=== PATIENT | female | born 1970 | race Caucasian/White ===

== ENCOUNTER 2016-04-23 19:20 | Outpatient (CLI) | payer OTHER | END 2016-04-23 19:21 | disposition short-term general hospital (02) | DX: S91.312A Laceration without foreign body, left foot, initial encounter (principal); W45.8XXA Other foreign body or object entering through skin, initial encounter; Y92.008 Other place in unspecified non-institutional (private) residence as the place of occurrence of the external cause | CPT/HCPCS: A0425; A0429 ==

== ENCOUNTER 2017-03-04 20:46 | Outpatient (CLI) | payer OTHER ==
--- NOTE | 2017-03-05 09:59 | XRAY Report ---
DATE OF SERVICE: 03/04/2017 THREE VIEW SACRUM AND COCCYX: 03/04/2017 CLINICAL INDICATION: Coccygeal pain, status post fall. FINDINGS: AP, oblique and lateral views of the sacrum and coccyx demonstrate no evidence of acute fracture. The sacral ala are preserved. There are mild degenerative changes of the sacroiliac joints. An IUD is incidentally noted in the pelvis. IMPRESSION: NO EVIDENCE OF ACUTE FRACTURE. MILD DEGENERATIVE CHANGES OF THE SACROILIAC JOINTS. TD: 03/05/2017 10:58
== END 2017-03-04 20:47 | disposition home or self-care (01) ==
LOC: DI 20:46
PROVIDERS: ATTEND Nurse Practitioner Family
DX: M47.898 Other spondylosis, sacral and sacrococcygeal region (principal)
CPT/HCPCS: 72220

== ENCOUNTER 2018-12-10 11:29 | Outpatient (CLI) | payer OTHER ==
[2018-12-10 17:40] LABS: BASOPHILS % (AUTO) 0.4 %; EOSINOPHILS # (AUTO) 0.2 10^3/uL (0.0-0.7); EOSINOPHILS % (AUTO) 1.9 %; HGB - HEMOGLOBIN 12.6 g/dL (12.0-16.0); LYMPHOCYTES # (AUTO) 2.5 10^3/uL (1.5-3.5); MEAN CORPUSCULAR VOLUME 93.9 fL (81.0-99.0); MEAN PLATELET VOLUME 10.3 fL (7.9-10.8); MONOCYTES # (AUTO) 0.7 10^3/uL (0.0-1.0); MONOCYTES % (AUTO) 7.8 %; NEUTROPHILS # (AUTO) 5.7 10^3/uL (1.5-6.6); NEUTROPHILS % (AUTO) 62.6 %; PLT - PLATELET COUNT 246 10^3/uL (130-450); RED BLOOD COUNT 4.07 10^6/uL (4.20-5.40); RED CELL DISTRIBUTION WIDTH 12.3 % (12.0-15.0); WHITE BLOOD COUNT 9.1 x10^3/uL (4.8-10.8)
[2018-12-10 17:58] LABS: CALCIUM 9.2 mg/dL (8.5-10.3); CREATININE 0.6 mg/dL (0.4-1.0)
== END 2018-12-10 11:30 | disposition home or self-care (01) ==
LOC: LAB.S 11:29
PROVIDERS: ATTEND Registered Nurse
DX: G43.909 Migraine, unspecified, not intractable, without status migrainosus (principal)
CPT/HCPCS: 36415; 80048; 85025

== ENCOUNTER 2021-01-02 07:18 | Outpatient (CLI) | payer OTHER ==
[2021-01-02 15:44] LABS: BASOPHILS % (AUTO) 0.6 %; EOSINOPHILS # (AUTO) 0.2 10^3/uL (0.0-0.7); EOSINOPHILS % (AUTO) 2.8 %; HGB - HEMOGLOBIN 12.5 g/dL (12.0-16.0); LYMPHOCYTES # (AUTO) 2.1 10^3/uL (1.5-3.5); MEAN CORPUSCULAR HEMOGLOBIN 29.8 pg (27.0-31.0); MEAN CORPUSCULAR HGB CONC 32.1 g/dL (32.0-36.0); MEAN CORPUSCULAR VOLUME 92.9 fL (81.0-99.0); MEAN PLATELET VOLUME 9.5 fL (7.9-10.8); MONOCYTES # (AUTO) 0.5 10^3/uL (0.0-1.0); NEUTROPHILS % (AUTO) 58.3 %; PLT - PLATELET COUNT 263 10^3/uL (130-450); RED CELL DISTRIBUTION WIDTH 12.3 % (12.0-15.0); WHITE BLOOD COUNT 6.8 x10^3/uL (4.8-10.8)
[2021-01-02 16:13] LABS: ALBUMIN 4.3 g/dL (3.2-5.5); ALBUMIN/GLOBULIN RATIO 1.5 (1.0-2.2); ALKALINE PHOSPHATASE 51 IU/L (42-121); ALT ALANINE AMINOTRANSFERASE 32 IU/L (10-60); AST ASPARTATE AMINOTRANSFERASE 24 IU/L (10-42); BILIRUBIN,TOTAL 0.9 mg/dL (0.2-1.0); BUN - BLOOD UREA NITROGEN 23 mg/dL (6-20); CARBON DIOXIDE - CO2 23 mmol/L (21-32); CHLORIDE 108 mmol/L (101-111); CHOL/HDL RATIO 4.8 (<4.4); CHOLESTEROL 200 mg/dL; CREATININE 0.8 mg/dL (0.4-1.0); GFR - MDRD 76 (>89); GLUCOSE 106 mg/dL (70-100); HDL CHOLESTEROL 42 mg/dL; LDL CHOLESTEROL,CALCULATED 122 mg/dL; LDL/HDL RATIO 2.9 (<4.4); POTASSIUM 3.7 mmol/L (3.5-5.0); SODIUM 139 mmol/L (135-145); TOTAL PROTEIN 7.2 g/dL (6.7-8.2); TRIGLYCERIDES 179 mg/dL; VLDL CHOLESTEROL 36 mg/dL
[2021-01-02 16:15] LABS: THYROID STIMULATING HORMONE 2.68 uIU/mL (0.34-5.60)
== END 2021-01-02 07:19 | disposition home or self-care (01) ==
LOC: LAB.S 07:18
PROVIDERS: ATTEND Registered Nurse
DX: I10 Essential (primary) hypertension (principal); E78.5 Hyperlipidemia, unspecified; Z13.29 Encounter for screening for other suspected endocrine disorder; Z13.0 Encounter for screening for diseases of the blood and blood-forming organs and certain disorders involving the immune mechanism
CPT/HCPCS: 36415; 80053; 80061; 83721; 84443; 85025

== ENCOUNTER 2021-01-30 07:30 | Outpatient (CLI) | payer OTHER ==
--- NOTE | 2021-01-31 14:05 | Mammography Report ---
BILATERAL DIGITAL SCREENING MAMMOGRAM 3D/2D WITH EXAGGERATED CC: 01/30/2021 CLINICAL: Routine screening. Comparison is made to exams dated: 08/02/2015 mammogram and 03/03/2013 mammogram - [facility]. There are scattered fibroglandular elements in both breasts. There is an oval equal density mass with an indistinct and circumscribed margin in the right breast c entral to the nipple middle depth. There is an oval equal density focal asymmetry with an obscured, indistinct, and circumscribed margin in the left breast at 1 o'clock anterior depth. No other significant masses or calcifications are seen in either breast. IMPRESSION: INCOMPLETE: NEEDS ADDITIONAL IMAGING EVALUATION The oval equal density mass in the right breast central to the nipple middle depth is indeterminate. Mediolateral and spot compression views as well as additional views with possible ultrasound are rec ommended. The oval equal density focal asymmetry in the left breast at 1 o'clock anterior depth is indeterminat e. Mediolateral and spot compression views as well as additional views with possible ultrasound are recommended. This exam was interpreted at Station ID: [id number]. NOTE: For mammograms, a report in lay terms will be sent to the patient. Approximately 15% of breast malignancies will not be visualized mammographically. In the management of a palpable breast mass, a negative mammogram must not discourage biopsy of a clinically suspicious lesion. Electronically Signed By: Alvin Valdez M.D. ddp/:01/30/2021 09:34:28 ACR BI-RADS Category 0: Incomplete 3340F PARENCHYMAL PATTERN: (A) - The breast(s) demonstrate(s) scattered fibroglandular densities. BI-RADS CATEGORY: (0) - 0 Mammo and US [id number] Immediate follow-up LATERALITY: (B)
== END 2021-01-30 07:31 | disposition home or self-care (01) ==
LOC: DI.S 07:30
PROVIDERS: ATTEND Registered Nurse
DX: Z12.31 Encounter for screening mammogram for malignant neoplasm of breast (principal); R92.8 Other abnormal and inconclusive findings on diagnostic imaging of breast

== ENCOUNTER 2021-02-20 07:46 | Outpatient (CLI) | payer OTHER ==
--- NOTE | 2021-02-21 16:06 | Ultrasound Report ---
LIMITED ULTRASOUND OF LEFT BREAST AND AXILLA: 02/20/2021 CLINICAL: Patient returns today to evaluate a focal asymmetry in the left breast. Comparison is made to exams dated: 02/20/2021 mammogram and 01/30/2021 mammogram - [facility]. Color flow and real-time ultrasound of the left breast 1 o'clock, and axilla regions were performed. Johnson scale images of the real-time examination were reviewed. There is a 1.3 cm x 0.8 cm x 0.4 cm oval cyst with a septated internal wall in the left breast at 1 o 'clock anterior depth 3 cm from the nipple. This oval cyst is hypoechoic. This correlates with mamm ography findings. Color flow imaging demonstrates that there is no vascularity present. No significant abnormalities were seen sonographically in the left axilla. IMPRESSION: PROBABLY BENIGN The 1.3 cm oval cyst in the left breast is consistent with a complicated cyst or cyst cluster and is probably benign. A follow-up ultrasound in 6 months is recommended to demonstrate stability. Exam findings were conveyed to the patient. This exam was interpreted at Station ID: [id number]. Electronically Signed By: Manohar Mccoy M.D. slc/:02/20/2021 09:19:54 Ultrasound BI-RADS: 3 Probably benign BI-RADS CATEGORY: (3) - 3 Ultrasound [id number] 6 month follow-up LATERALITY: (B)
--- NOTE | 2021-02-21 16:06 | Mammography Report ---
BILATERAL DIGITAL DIAGNOSTIC MAMMOGRAM 3D/2D: 02/20/2021 CLINICAL: Patient returns today to evaluate a focal asymmetry in the right breast. Patient returns to day to evaluate a focal asymmetry in the left breast. Comparison is made to exams dated: 01/30/2021 mammogram, 08/02/2015 mammogram, and 03/03/2013 mammogra m - [facility]. There are scattered fibroglandular elements in both breasts. There is a 0.8 cm oval equal density mass with an indistinct and circumscribed margin in the right br east central to the nipple middle depth. There is a 1.3 cm oval equal density focal asymmetry with an obscured, indistinct, and circumscribed margin in the left breast at 1 o'clock anterior depth. No other significant masses or calcifications are seen in either breast. IMPRESSION: INCOMPLETE: NEEDS ADDITIONAL IMAGING EVALUATION The 0.8 cm oval equal density mass in the right breast central to the nipple middle depth is indeterm inate. A targeted ultrasound is recommended and will immediately follow. The 1.3 cm oval equal density focal asymmetry in the left breast at 1 o'clock anterior depth is indet erminate. A targeted ultrasound is recommended and will immediately follow. This exam was interpreted at Station ID: [id number]. NOTE: For mammograms, a report in lay terms will be sent to the patient. Approximately 15% of breast malignancies will not be visualized mammographically. In the management of a palpable breast mass, a negative mammogram must not discourage biopsy of a clinically suspicious lesion. Electronically Signed By: Manohar Mccoy M.D. slc/:02/20/2021 08:34:08 ACR BI-RADS Category 0: Incomplete 3340F PARENCHYMAL PATTERN: (A) - The breast(s) demonstrate(s) scattered fibroglandular densities. BI-RADS CATEGORY: (0) - 0 Ultrasound [id number] Immediate follow-up LATERALITY: (B)
--- NOTE | 2021-02-21 16:06 | Ultrasound Report ---
LIMITED ULTRASOUND OF RIGHT BREAST: 02/20/2021 CLINICAL: Patient returns today to evaluate a focal asymmetry in the right breast. Comparison is made to exams dated: 02/20/2021 mammogram and 01/30/2021 mammogram - [facility]. Color flow and real-time ultrasound of the right breast 9 o'clock, 12 o'clock, and retroareolar regio ns were performed. Johnson scale images of the real-time examination were reviewed. There is a benign 0.7 cm x 0.6 cm x 0.4 cm oval normal lymph node with a circumscribed margin in the right breast at 9 o'clock middle depth. This oval normal lymph node displays fatty hilum. This latosha elates with mammography findings. IMPRESSION: BENIGN There is no sonographic evidence of malignancy. The 0.7 cm normal lymph node in the right breast is benign. A 1 year screening mammogram is recommended. Exam findings were conveyed to the patient. This exam was interpreted at Station ID: [id number]. Electronically Signed By: Manohar Mccoy M.D. slc/:02/20/2021 09:17:02 Ultrasound BI-RADS: 2 Benign BI-RADS CATEGORY: (2) - 2 RECOMMENDATION: (ANNUAL) - Recommend routine annual screening mammography. [id number] 1 year screening LATERALITY: (B)
== END 2021-02-20 07:47 | disposition home or self-care (01) ==
LOC: DI 07:46
PROVIDERS: ATTEND Registered Nurse
DX: R92.8 Other abnormal and inconclusive findings on diagnostic imaging of breast (principal)

== ENCOUNTER 2022-03-08 08:07 | Outpatient (CLI) | payer OTHER ==
--- NOTE | 2022-03-08 12:02 | Ultrasound Report ---
LIMITED ULTRASOUND OF LEFT BREAST: 03/08/2022 CLINICAL: Patient returns today to evaluate a focal asymmetries in the left breast. Comparison is made to exams dated: 03/08/2022 mammogram, 02/20/2021 ultrasound, 02/20/2021 mammogram, 04/02/2020 mammogram, 08/02/2015 mammogram, and 03/03/2013 mammogram - [facility]. Color flow and real-time ultrasound of the left breast 12-1 o'clock region were performed. Johnson sca le images of the real-time examination were reviewed. There is a benign 0.6 cm x 0.3 cm clustered microcysts in the left breast at 1 o'clock anterior depth 3 cm from the nipple. This abnormality is decreased in size and correlates with mammography finding s and prior US. IMPRESSION: BENIGN There is no sonographic evidence of malignancy. The 0.6 cm x 0.3 cm micro cyst in the left breast is consistent with apocrine metaplasia and is benig n. Multiple clustered microcysts and simple cysts are present, corresponding to oval circumscribed renée s on mammogram that are variably seen over multiple comparison studies. Return to annual mammogram screening schedule is recommended. This exam was interpreted at Station ID: [id number]. Electronically Signed By: Gume Marks M.D. lc/:03/08/2022 10:01:32 Ultrasound BI-RADS: 2 Benign BI-RADS CATEGORY: (2) - 2 Mammogram [id number] return to screening LATERALITY: (B)
--- NOTE | 2022-03-08 12:02 | Ultrasound Report ---
LIMITED ULTRASOUND OF RIGHT BREAST: 03/08/2022 CLINICAL: Patient returns today to evaluate a focal asymmetries in the right breast. Comparison is made to exams dated: 03/08/2022 mammogram, 02/20/2021 ultrasound, 02/20/2021 mammogram, 04/02/2020 mammogram, 08/02/2015 mammogram, and 03/03/2013 mammogram - [facility]. Color flow and real-time ultrasound of the right breast 10-11 o'clock region were performed. Johnson sc sruthi images of the real-time examination were reviewed. Multiple clustered microcysts and simple cysts are present, corresponding to oval circumscribed renée s on mammogram that are variably seen over multiple comparison studies. IMPRESSION: BENIGN There is no sonographic evidence of malignancy. Multiple clustered microcysts and simple cysts are present, corresponding to oval circumscribed renée s on mammogram that are variably seen over multiple comparison studies. The new mass on mammogram cor responds to a 4-5mm simple cyst at 11:00 4 cm from the nipple. Return to annual mammogram screening schedule is recommended. This exam was interpreted at Station ID: [id number]. Electronically Signed By: Gume Marks M.D. lc/:03/08/2022 10:03:22 Ultrasound BI-RADS: 2 Benign BI-RADS CATEGORY: (2) - 2 Mammogram [id number] return to screening LATERALITY: (B)
--- NOTE | 2022-03-08 12:02 | Mammography Report ---
BILATERAL DIGITAL DIAGNOSTIC MAMMOGRAM 3D/2D: 03/08/2022 CLINICAL: Short term follow up for bilateral breasts. Comparison is made to exams dated: 02/20/2021 mammogram, 01/30/2021 mammogram, 08/02/2015 mammogram, a nd 03/03/2013 mammogram - [facility]. There are scattered areas of fibroglandular density in both breasts (category b / 25%-50% glandular t issue). There are oval shaped masses with a circumscribed margin in both breasts, waxing waning variably over multiple prior studies. One 4mm mass in the right breast is new, at 11:00 4cm from the nipple. The previously seen left breas t mass central to the nipple is smaller. No significant masses, calcifications, or other findings are seen in either breast. IMPRESSION: INCOMPLETE: NEEDS ADDITIONAL IMAGING EVALUATION There are oval shaped masses with a circumscribed margin in both breasts, waxing waning variably over multiple prior studies. One 4mm mass in the right breast is new, at 11:00 4cm from the nipple. The previously seen left breas t mass central to the nipple is smaller. These are indeterminant, an ultasound is recommended. Based on the Tyrer Cuzick model (a risk assessment model) the patients lifetime risk is 9.8% and her 10 year risk is 2.3%. According to the ACR, ACS, and NCCN guidelines, an annual breast MRI exam norberto g with mammogram is recommended if the patients lifetime risk is 20% or greater. This exam was interpreted at Station ID: [id number]. NOTE: For mammograms, a report in lay terms will be sent to the patient. Approximately 15% of breast malignancies will not be visualized mammographically. In the management of a palpable breast mass, a negative mammogram must not discourage biopsy of a clinically suspicious lesion. Electronically Signed By: Gume Marks M.D. lc/:03/08/2022 09:58:51 ACR BI-RADS Category 0: Incomplete 3340F PARENCHYMAL PATTERN: (A) - The breast(s) demonstrate(s) scattered fibroglandular densities. BI-RADS CATEGORY: (0) - 0 Ultrasound [id number] Immediate follow-up LATERALITY: (B)
== END 2022-03-08 08:08 | disposition home or self-care (01) ==
LOC: DI 08:07
PROVIDERS: ATTEND Registered Nurse
DX: N60.11 Diffuse cystic mastopathy of right breast (principal); N60.12 Diffuse cystic mastopathy of left breast

== ENCOUNTER 2022-03-14 08:00 | Outpatient (CLI) | payer OTHER ==
[2022-03-14 14:56] LABS: BASOPHILS % (AUTO) 0.5 %; EOSINOPHILS # (AUTO) 0.2 10^3/uL (0.0-0.7); EOSINOPHILS % (AUTO) 2.7 %; HCT - HEMATOCRIT 43.9 % (37.0-47.0); HGB - HEMOGLOBIN 13.8 g/dL (12.0-16.0); LYMPHOCYTES # (AUTO) 2.1 10^3/uL (1.5-3.5); MEAN CORPUSCULAR HEMOGLOBIN 29.4 pg (27.0-31.0); MEAN CORPUSCULAR HGB CONC 31.4 g/dL (32.0-36.0); MEAN CORPUSCULAR VOLUME 93.4 fL (81.0-99.0); MEAN PLATELET VOLUME 10.1 fL (7.9-10.8); MONOCYTES # (AUTO) 0.6 10^3/uL (0.0-1.0); MONOCYTES % (AUTO) 7.2 %; NEUTROPHILS # (AUTO) 5.2 10^3/uL (1.5-6.6); NEUTROPHILS % (AUTO) 63.5 %; PLT - PLATELET COUNT 253 10^3/uL (130-450); RED CELL DISTRIBUTION WIDTH 12.3 % (12.0-15.0); WHITE BLOOD COUNT 8.2 x10^3/uL (4.8-10.8)
[2022-03-14 15:25] LABS: ALBUMIN 4.3 g/dL (3.2-5.5); ALBUMIN/GLOBULIN RATIO 1.4 (1.0-2.2); ALKALINE PHOSPHATASE 59 IU/L (42-121); ALT ALANINE AMINOTRANSFERASE 31 IU/L (10-60); AST ASPARTATE AMINOTRANSFERASE 20 IU/L (10-42); BILIRUBIN,TOTAL 0.7 mg/dL (0.2-1.0); BUN - BLOOD UREA NITROGEN 19 mg/dL (6-20); CALCIUM 9.3 mg/dL (8.5-10.3); CARBON DIOXIDE - CO2 24 mmol/L (21-32); CHLORIDE 102 mmol/L (101-111); CHOL/HDL RATIO 5.1 (<4.4); CHOLESTEROL 219 mg/dL; GFR - MDRD 59 (>89); GLUCOSE 100 mg/dL (70-100); HDL CHOLESTEROL 43 mg/dL; LDL CHOLESTEROL,CALCULATED 130 mg/dL; SODIUM 138 mmol/L (135-145); TOTAL PROTEIN 7.4 g/dL (6.7-8.2); TRIGLYCERIDES 229 mg/dL; VLDL CHOLESTEROL 46 mg/dL
[2022-03-14 15:30] LABS: THYROID STIMULATING HORMONE 1.56 uIU/mL (0.34-5.60)
== END 2022-03-14 08:01 | disposition home or self-care (01) ==
LOC: LAB.S 08:00
PROVIDERS: ATTEND Registered Nurse
DX: I10 Essential (primary) hypertension (principal); E78.5 Hyperlipidemia, unspecified
CPT/HCPCS: 36415; 80053; 80061; 83721; 84443; 85025

== ENCOUNTER 2023-02-08 07:00 | Outpatient (CLI) | payer BC ==
--- NOTE | 2023-02-08 13:47 | XRAY Report ---
PROCEDURE: Chest 2V INDICATIONS: SHORTNESS OF BREATH/COUGH TECHNIQUE: 2 views of the chest were acquired. COMPARISON: None. FINDINGS: Surgical changes and devices: Spinal hardware evaluated Lungs and pleura: No dense consolidation or pleural effusion. Mediastinum: Normal heart size Bones and chest wall: Rightward spinal curvature. IMPRESSION: No acute radiographic abnormality. Reviewed by: Gume Marks MD on 02/08/2023 1:46 PM PST Approved by: Gume Marks MD on 02/08/2023 1:46 PM PST Station ID: [id number]
== END 2023-02-08 07:01 | disposition home or self-care (01) ==
LOC: DI.S 07:00
PROVIDERS: ATTEND Physician Assistant Medical
DX: R06.02 Shortness of breath (principal)

== ENCOUNTER 2023-03-04 07:54 | Outpatient (CLI) | payer BC ==
--- NOTE | 2023-03-04 11:06 | Mammography Report ---
BILATERAL DIGITAL SCREENING MAMMOGRAM 3D/2D: 03/04/2023 CLINICAL: Routine screening. Family history of breast cancer. Comparison is made to exams dated: 03/08/2022 mammogram, 02/20/2021 mammogram, 01/30/2021 mammogram, mammogram, and 03/03/2013 mammogram - [facility]. There are scattered areas of fibroglandular density in both breasts (category b / 25%-50% glandular t issue). No significant masses, calcifications, or other findings are seen in either breast. There has been no significant interval change. IMPRESSION: NEGATIVE There is no mammographic evidence of malignancy. A 1 year screening mammogram is recommended. Based on the Tyrer Cuzick model (a risk assessment model) the patient's lifetime risk is 9.9% and her 10 year risk is 2.4%. According to the ACR, ACS, and NCCN guidelines, an annual breast MRI exam norberto g with mammogram is recommended if the patients lifetime risk is 20% or greater. This exam was interpreted at Station ID: [id number]. NOTE: For mammograms, a report in lay terms will be sent to the patient. Approximately 15% of breast malignancies will not be visualized mammographically. In the management of a palpable breast mass, a negative mammogram must not discourage biopsy of a clinically suspicious lesion. Electronically Signed By: Lorie Stratton M.D., PH.D emmy/felicita:03/04/2023 08:34:45 letter sent: No_Letter ACR BI-RADS Category 1: Negative 3341F PARENCHYMAL PATTERN: (A) - The breast(s) demonstrate(s) scattered fibroglandular densities. BI-RADS CATEGORY: (1) - 1 Mammogram [id number] 1 year screening LATERALITY: (B)
== END 2023-03-04 07:55 | disposition home or self-care (01) ==
LOC: DI.S 07:54
PROVIDERS: ATTEND Registered Nurse
DX: Z12.31 Encounter for screening mammogram for malignant neoplasm of breast (principal); Z80.3 Family history of malignant neoplasm of breast; R92.323 Mammographic fibroglandular density, bilateral breasts